=== PATIENT | female | born 1960 | race Caucasian/White ===

== ENCOUNTER 2017-06-18 09:47 | Outpatient (RCR) | payer OTHER, SELFPAY ==
--- NOTE | 2017-06-18 15:40 | MASS.EVAL_ITS ---
Massage Therapy Evaluation: Initial Evaluation Date: 06/18/2017 SUBJECTIVE: Rosa is a 56 year old female who was referred to the [facility] facility for a massotherapy evaluation by Dr. Андрей Cuevas with the diagnosis of chronic low back pain. Rosa presents today with the symptoms of tension and pain in her neck, upper back, shoulders and lower back. She reports having a medical history of fibrmyalgia and low back and neck pain with radiating pain in her neck currently. She reports having minimal limitations during his daily activities currently. OBJECTIVE: Upon observation Rosa has poor posture with her head forward and shoulders forward from the neutral position in sitting and standing. After examination and palpation I found Rosa to have very high muscle tension in her scalenes, trapezius, rhomboids, and sub occipitals with minimal restrictions in cervical ROM. Her thoracic and lumbar paraspinals were tender with muscle knots. Her hips and lumbar region were also tight with tender points. The first treatment consisted of a one hour massage to her upper body with myofascial release, muscle stripping, trigger point compression techniques, and cervical manual traction. ASSESSMENT: I feel that Rosa is a good candidate for massotherapy at this time. She had a favorable response to the first treatment with reduction in her muscle aches, pain and tension. She also had improvement in her cervical and lumbar range of motion with improved flexibility. PLAN: The plan of care was reviewed with the patient. The patient is to be seen on as needed basis for a total of ten sessions with the recommendation of once every four weeks for a one hour treatment.
--- NOTE | 2018-04-22 15:55 | MASS.DISCH ---
Massage Therapy Discharge Summary: Discharge Date: 04/22/2018 Rosa was seen for a massotherapy evaluation on 06/18/2017 with the diagnosis of chronic low back pain. She was treated with one session of massage therapy consisting of deep pressure soft tissue techniques, myofascial release and trigger point compression to her cervical, thoracic, lower back, upper extremities and hips. Rosa responded well to the therapy by reporting decreased tension and pain throughout her neck, shoulders, lower back and hips. Her goals for therapy were not met due to no follow up treatment sessions performed. At this time this patient is being discharged from our care at [facility] facility.
== END 2017-06-18 19:00 | disposition home or self-care (01) ==
LOC: MASS 09:47
PROVIDERS: Family Provider Family Medicine; PCP Family Medicine; Visit Provider Family Medicine
DX: M54.5 Low back pain (principal)
CPT/HCPCS: 97124

== ENCOUNTER → 2017-07-04 15:19 | Outpatient (CLI) | payer OTHER, SELFPAY | PROVIDERS: Family Provider Family Medicine; PCP Family Medicine; Visit Provider Physician Assistant | DX: J02.9 Acute pharyngitis, unspecified (principal) | CPT/HCPCS: 87081 ==

== ENCOUNTER → 2018-10-10 | Outpatient (CLI) | payer OTHER, SELFPAY ==
[2018-08-20 10:30] VITALS: BMI 29.2
--- NOTE | 2018-10-10 09:51 | ECHOD_ITS ---
Reason For Study: VALVE REPL EVAL Procedure This was a 2D Doppler, Color Flow transthoracic echocardiogram. The study was technically difficult. Exam performed in department. Left Ventricle Normal size and thickness. The estimated ejection fraction is 65 %. Stage 1 diastolic dysfunction. No regional wall motion abnormalities noted. Right Ventricle Normal size and thickness. Normal systolic function. Atria Normal left atrium. Normal right atrium. Normal atrial septum. Mitral Valve The mitral valve is structurally normal. No prolapse or stenosis seen. Trivial mitral valve insufficiency. Tricuspid Valve Normal tricuspid valve. Trivial tricuspid valve insufficiency. Right ventricular systolic pressure estimated to be 24 mmHg. Aortic Valve Trisinus/trileaflet aortic valve. Normal aortic valve. Pulmonic Valve Normal pulmonic valve. Great Vessels Normal aortic root. Normal arch. Normal inferior vena cava. Inferior vena cava collapse with sniff. Pericardium/Pleural No pericardial effusion. MMode/2D Measurements & Calculations LVIDd: 4.6 cm IVSd: 0.77 cm Ao root diam: 3.2 cm LVIDs: 2.8 cm LVPWd: 0.93 cm RVDd: 3.6 cm FS: 38.7 % LAV(MOD-bp): 42.3 ml LA A4 area: 15.6 cm2 LA dimension(2D): 3.5 cm LAV(MOD-bp) Indexed: 21.7 ml/m2 LAV(MOD-sp2): 46.2 ml LAV(MOD-sp4): 37.2 ml RA A4 area: 10.5 cm2 Time Measurements MV dec time: 0.23 sec Doppler Measurements & Calculations MV E max tray: 55.6 cm/sec Lat Peak E' Tray: 7.0 cm/sec Med Peak E' Tray: 6.8 cm/sec MV A max tray: 68.4 cm/sec E/E' lat: 7.9 E/E' med: 8.2 MV E/A: 0.81 Ao V2 max: 152.2 cm/sec LV V1 max: 106.1 cm/sec PA V2 max: 74.0 cm/sec Ao max P.3 mmHg LV V1 max P.5 mmHg TR max tray: 222.0 cm/sec TR max P.7 mmHg Interpretation Summary The estimated ejection fraction is 65 %. Stage 1 diastolic dysfunction. Trivial tricuspid valve insufficiency. Right ventricular systolic pressure estimated to be 24 mmHg. Trivial mitral valve insufficiency. There is no comparison study available. Ordering Physician: Gonzalo Valentin Referring Physician: SOL FORTE Performed By: Tracy Joseph RDCS, RVT
== END | disposition home or self-care (01) ==
LOC: CVS 09:50
PROVIDERS: Family Provider Family Medicine; PCP Family Medicine; Referring Provider Internal Medicine Cardiovascular Disease; Visit Provider Internal Medicine Cardiovascular Disease
DX: R00.2 Palpitations (principal); Z86.79 Personal history of other diseases of the circulatory system
CPT/HCPCS: 93306

== ENCOUNTER → 2018-11-01 | Outpatient (CLI) | payer OTHER, SELFPAY ==
[2018-08-20 10:30] VITALS: BMI 29.2
[2018-11-01 12:04] LABS: AST(SGOT) 24 U/L (15-37); Alanine Aminotransfer ALT/SGPT 27 U/L (13-56); Albumin, Serum 3.6 g/dL (3.2-5.0); Alkaline Phosphatase 62 U/L (45-117); Bilirubin, Direct 0.14 mg/dL (0.00-0.30); Cholesterol 201 mg/dL (200); Globulin 4.2 g/dL (2.2-4.2); High Density Lipoprotein 51 mg/dL; Protein, Total 7.8 g/dL (6.4-8.2); Triglycerides 183 mg/dL; Very Low Density Lipoprotein 37 mg/dL (5-40)
[2018-11-01 16:13] LABS: Thyroid Stim Hormone (TSH) 1.76 uIU/mL (0.358-3.74)
== END | disposition home or self-care (01) ==
LOC: LAB 10:48
PROVIDERS: Family Provider Family Medicine; PCP Family Medicine; Referring Provider Internal Medicine Cardiovascular Disease; Visit Provider Internal Medicine Cardiovascular Disease
DX: K50.90 Crohn's disease, unspecified, without complications (principal); R00.2 Palpitations; Z86.79 Personal history of other diseases of the circulatory system; E03.9 Hypothyroidism, unspecified
CPT/HCPCS: 36415; 80061; 80076; 84443

== ENCOUNTER 2021-06-24 08:20 | Outpatient (CLI) | payer OTHER, SELFPAY ==
--- NOTE | 2021-06-24 08:24 | BI_ITS ---
MAMMOGRAPHY - BILATERAL SCREENING REASON FOR EXAM: Female, 60 years old. Routine annual screening examination. PERTINENT HISTORY: Grandmother with breast cancer. TECHNIQUE: Digital bilateral breast yifan (3D mammographic acquisition) in the CC and MLO projections. 2-D mediolateral oblique (MLO) and craniocaudad (CC) views of both breasts were obtained. CAD: Full Field Digital Mammography with Computer Added Detection was performed. COMPARISON: Comparison is made with prior study dated 09/27/2011. FINDINGS: Breast Composition: There are scattered areas of fibroglandular density. There are no dominant masses or suspicious calcifications. Stable small benign-appearing bilateral axillary lymph nodes. No other significant abnormalities are identified. There has been no significant change since the prior study. BI/SCRN MAMM (CAD)W/YIFAN BILAT IMPRESSION: Stable bilateral screening mammogram. Yearly follow-up mammogram recommended. (A) ASSESSMENT CATEGORY: BIRADS Category 2: Benign. A letter regarding these results will be sent to the patient by the facility within 30 days. Approximately 10% of breast cancers are not detected by mammography. A normal mammogram should not delay biopsy of a clinically suspicious abnormality. [id number] Electronically Signed: Jamie Christy MD at 9:57 EST ,
== END 2021-06-24 23:59 | disposition home or self-care (01) ==
LOC: OPBI 08:21
PROVIDERS: PCP Family Medicine; Referring Provider Obstetrics & Gynecology; Visit Provider Obstetrics & Gynecology
DX: Z12.31 Encounter for screening mammogram for malignant neoplasm of breast (principal)
CPT/HCPCS: 77063; 77067

== ENCOUNTER → 2021-09-27 | Outpatient (CLI) | payer OTHER, SELFPAY ==
[2021-09-27 16:02] LABS: Absolute Lymphocyte Count 1.43 X10^3/uL (0.83-4.51); Absolute Neutrophil Count 3.7 X10^3/uL (2.0-7.7); Basophil# 0.05 X10^3/uL; Basophil% 0.9 % (0-1); Eosinophil# 0.11 X10^3/uL; Eosinophils% 1.9 % (0-5); Hematocrit 28.4 % (37-47); Lymphocyte # 1.43 X10^3/ul (0.83-4.51); Lymphocyte % 24.7 % (19-41); Mean Corp Hgb Conc 28.2 g/dL (32-36); Mean Corpuscular Hgb 21.3 pg (27.0-32.0); Mean Corpuscular Volume 75.7 fL (81-99); Mean Platelet Vol. 9.6 fl (6.2-12.0); Monocyte# 0.43 X10^3/uL; Monocyte% 7.4 % (0-10); NRBC Flagged by Analyzer 0.3 % (0-5); Neutrophil # 3.74 X10^3/uL (2.7-7.7); Neutrophil % 64.8 % (47-70); Platelet Count 331 K/mm3 (150-450); RBC Distribution Width CV 16.7 % (11.6-14.6); RBC Distribution Width SD 45.4 fl (35.1-43.9); Red Blood Count 3.75 M/mm3 (4.2-5.4); White Blood Count 5.8 K/mm3 (4.4-11.0)
== END | disposition home or self-care (01) ==
LOC: LAB 15:29
PROVIDERS: PCP Family Medicine; Referring Provider Family Medicine; Visit Provider Family Medicine
DX: R53.83 Other fatigue (principal)
CPT/HCPCS: 36415; 85025

== ENCOUNTER → 2021-11-17 | Outpatient (CLI) | payer OTHER, SELFPAY ==
[2021-11-17 12:50] LABS: Erythrocyte Sedimentation Rate 26 mm/hr (0-30)
[2021-11-17 12:55] LABS: Absolute Lymphocyte Count 0.72 X10^3/uL (0.83-4.51); Absolute Neutrophil Count 2.8 X10^3/uL (2.0-7.7); Basophil# 0.04 X10^3/uL; Eosinophil# 0.09 X10^3/uL; Eosinophils% 2.3 % (0-5); Hemoglobin 10.4 g/dL (12.0-15.0); Lymphocyte # 0.72 X10^3/ul (0.83-4.51); Mean Corp Hgb Conc 30.6 g/dL (32-36); Mean Corpuscular Hgb 24.9 pg (27.0-32.0); Mean Corpuscular Volume 81.5 fL (81-99); Mean Platelet Vol. 9.8 fl (6.2-12.0); Monocyte# 0.32 X10^3/uL; NRBC Flagged by Analyzer 0 % (0-5); Neutrophil # 2.81 X10^3/uL (2.7-7.7); Neutrophil % 70.4 % (47-70); POSITIVE MORPHOLOGY YES; Platelet Count 305 K/mm3 (150-450); RBC Distribution Width CV 22.2 % (11.6-14.6); RBC Distribution Width SD 66.1 fl (35.1-43.9); RET-HE 28.3 pg (30-35); Red Blood Count 4.17 M/mm3 (4.2-5.4); Reticulocyte Count 2.97 % (0.5-1.5)
[2021-11-17 13:08] LABS: Differential Indicated SCAN CRITERIA MET
[2021-11-17 13:15] LABS: CRP < 2.90 mg/L (0.0-3.0); Ferritin 18 ng/mL (8-252); Iron 276 ug/dL (50-170); Iron Binding Capacity,Total 398 ug/dL (250-450); LDH 213 U/L (84-246); PERCENT IRON SATURATION 69.3 % (15.0-55.0)
[2021-11-17 13:31] LABS: Anisocytosis 3+; Differential Comment SCANNED
== END | disposition home or self-care (01) ==
LOC: LABSPEC 11:54 → LAB 12:06
PROVIDERS: PCP Family Medicine; Visit Provider Internal Medicine Gastroenterology
DX: D64.9 Anemia, unspecified (principal)
CPT/HCPCS: 36415; 82728; 83540; 83550; 83615; 85025; 85045; 85652; 86140

== ENCOUNTER → 2022-02-16 | Outpatient (CLI) | payer OTHER, SELFPAY ==
[2022-02-16 08:52] LABS: Absolute Lymphocyte Count 1.21 X10^3/uL (0.83-4.51); Absolute Neutrophil Count 3.7 X10^3/uL (2.0-7.7); Basophil# 0.05 X10^3/uL; Basophil% 0.9 % (0-1); Eosinophil# 0.17 X10^3/uL; Eosinophils% 3.1 % (0-5); Hematocrit 39.5 % (37-47); Hemoglobin 12.5 g/dL (12.0-15.0); Lymphocyte # 1.21 X10^3/ul (0.83-4.51); Lymphocyte % 22.1 % (19-41); Mean Corp Hgb Conc 31.6 g/dL (32-36); Mean Corpuscular Hgb 29.3 pg (27.0-32.0); Mean Corpuscular Volume 92.5 fL (81-99); Mean Platelet Vol. 10.1 fl (6.2-12.0); Monocyte# 0.32 X10^3/uL; Monocyte% 5.9 % (0-10); NRBC Flagged by Analyzer 0 % (0-5); Neutrophil # 3.71 X10^3/uL (2.7-7.7); Neutrophil % 67.8 % (47-70); Platelet Count 264 K/mm3 (150-450); RBC Distribution Width SD 50.2 fl (35.1-43.9); Red Blood Count 4.27 M/mm3 (4.2-5.4); White Blood Count 5.5 K/mm3 (4.4-11.0)
[2022-02-16 10:11] LABS: Ferritin 24 ng/mL (8-252); Iron 38 ug/dL (50-170); Iron Binding Capacity,Total 340 ug/dL (250-450)
== END | disposition home or self-care (01) ==
LOC: LAB 08:18
PROVIDERS: PCP Family Medicine; Referring Provider Family Medicine; Visit Provider Family Medicine
DX: D64.9 Anemia, unspecified (principal)
CPT/HCPCS: 36415; 82728; 82746; 83540; 83550; 85025

== ENCOUNTER → 2022-10-06 | Outpatient (CLI) | payer OTHER, SELFPAY ==
[2022-10-06 15:47] LABS: Absolute Lymphocyte Count 0.85 X10^3/uL (0.83-4.51); Absolute Neutrophil Count 3.2 X10^3/uL (2.0-7.7); Basophil# 0.05 X10^3/uL; Basophil% 1.1 % (0-1); Eosinophil# 0.11 X10^3/uL; Eosinophils% 2.4 % (0-5); Hematocrit 27.1 % (37-47); Hemoglobin 7.7 g/dL (12.0-15.0); Lymphocyte # 0.85 X10^3/ul (0.83-4.51); Lymphocyte % 18.7 % (19-41); Mean Corp Hgb Conc 28.4 g/dL (32-36); Mean Corpuscular Hgb 21.8 pg (27.0-32.0); Mean Corpuscular Volume 76.6 fL (81-99); Mean Platelet Vol. 9.4 fl (6.2-12.0); Monocyte% 6.6 % (0-10); NRBC Flagged by Analyzer 0 % (0-5); Neutrophil # 3.22 X10^3/uL (2.7-7.7); Neutrophil % 70.8 % (47-70); POSITIVE MORPHOLOGY YES; Platelet Count 296 K/mm3 (150-450); RBC Distribution Width CV 20.8 % (11.6-14.6); RBC Distribution Width SD 57.4 fl (35.1-43.9); Red Blood Count 3.54 M/mm3 (4.2-5.4); White Blood Count 4.6 K/mm3 (4.4-11.0)
[2022-10-06 16:00] LABS: Differential Indicated SCAN CRITERIA MET
[2022-10-06 16:31] LABS: Thyroid Stim Hormone (TSH) 3.02 uIU/mL (0.358-3.74)
[2022-10-06 16:42] LABS: Anisocytosis 2+; Differential Comment SCANNED
[2022-10-06 16:43] LABS: Hypochromasia 3+; Microcytosis 1+; Polychromasia 1+
[2022-10-06 16:44] LABS: Ovalocyte RARE; Schistocytes RARE; Target Cells RARE
== END | disposition home or self-care (01) ==
PROVIDERS: PCP Family Medicine; Referring Provider Family Medicine; Visit Provider Family Medicine
DX: E03.9 Hypothyroidism, unspecified (principal); D64.9 Anemia, unspecified
CPT/HCPCS: 36415; 84443; 85025

== ENCOUNTER 2022-10-11 17:58 | Emergency (ER) | payer OTHER, SELFPAY ==
[2022-10-11 17:59] VITALS: TEMP 36.4; BMI 32.4
[2022-10-11 18:05] VITALS: BP 172/116; PULSE 89; RESP 14; O2SAT 99
--- NOTE | 2022-10-11 18:25 | EKG12_ITS ---
Test Reason : CP Blood Pressure : / mmHG Vent. Rate : 077 BPM Atrial Rate : 077 BPM P-R Int : 158 ms QRS Dur : 086 ms QT Int : 366 ms P-R-T Axes : 058 014 017 degrees QTc Int : 414 ms Normal sinus rhythm Nonspecific ST abnormality Abnormal ECG Confirmed by ALLY CASTELLANOS, ZAFAR ([id number]), fan mail editor COOPER KLEIN ([id number]) on 10/13/2022 8:09:56 AM Referred By: ROBERT Confirmed By:ZAFAR CANALES MD
[2022-10-11] MEDS: Aspirin 81 MG TAB.CHEW 324 MG PO (18:33)
--- NOTE | 2022-10-11 18:38 | RAD_ITS ---
INDICATION: chest pain EXAMINATION/TECHNIQUE: X-RAY - XR Chest 1 View COMPARISON: FINDINGS: LINES/DEVICES: None. LUNGS: No consolidation, edema or effusion. No pneumothorax. MEDIASTINUM AND CARDIOVASCULAR STRUCTURES: Cardiac silhouette not enlarged. Central airways and mediastinal contour are unremarkable. BONES AND SOFT TISSUES: Degenerative vertebral changes. RAD/Chest 1 View (Portable) IMPRESSION: No radiographic evidence of acute cardiopulmonary disease. Electronically Signed: Oscar Carlisle DO at 18:50 EDT ,
[2022-10-11 19:00] LABS: Absolute Lymphocyte Count 1.09 X10^3/uL (0.83-4.51); Absolute Neutrophil Count 4.6 X10^3/uL (2.0-7.7); Basophil# 0.05 X10^3/uL; Basophil% 0.8 % (0-1); Eosinophils% 1.6 % (0-5); Hematocrit 33.8 % (37-47); Hemoglobin 9.3 g/dL (12.0-15.0); Lymphocyte # 1.09 X10^3/ul (0.83-4.51); Lymphocyte % 17.4 % (19-41); Mean Corp Hgb Conc 27.5 g/dL (32-36); Mean Corpuscular Hgb 21.5 pg (27.0-32.0); Mean Corpuscular Volume 78.2 fL (81-99); Mean Platelet Vol. 9.4 fl (6.2-12.0); Monocyte% 6.4 % (0-10); NRBC Flagged by Analyzer 0 % (0-5); Neutrophil % 73.5 % (47-70); POSITIVE MORPHOLOGY YES; Platelet Count 333 K/mm3 (150-450); RBC Distribution Width CV 22.5 % (11.6-14.6); RBC Distribution Width SD 59.3 fl (35.1-43.9); Red Blood Count 4.32 M/mm3 (4.2-5.4); White Blood Count 6.3 K/mm3 (4.4-11.0)
[2022-10-11 19:02] LABS: Differential Indicated SCAN CRITERIA MET
[2022-10-11 19:17] LABS: Anion Gap 5 (5-15); BUN 13 mg/dL (7-18); BUN/Creat Ratio 15.1 RATIO (10-20); Calcium,Total 9.2 mg/dL (8.5-10.1); Chloride 107 mmol/L (98-107); Creatinine, Serum 0.86 mg/dL (0.55-1.02); EST Glomerular Filtration Rate 71 mL/min (>60); Est Glom Filt Rate - Afr Amer 85 mL/min (>60); Estimated Creatinine Clearance 59.47 ml/min; Glucose 105 mg/dL (74-106); Potassium 3.8 mmol/L (3.5-5.1); Sodium Level 140 mmol/L (136-145); Troponin-I HS 9 pg/mL (3.0-54.0)
[2022-10-11 19:23] LABS: Anisocytosis 2+; Differential Comment SCANNED; Hypochromasia 1+; Macrocytosis 1+; Microcytosis 1+
--- NOTE | 2022-10-11 19:35 | CT_ITS ---
STUDY: CTA CHEST REASON FOR EXAM: Female, 62 years old. Elevated D-dimer RADIATION DOSAGE (If Supplied By Facility): CTDIvol = ( 14.71 ) mGy, DLP = ( 493.36 ) mGycm TECHNIQUE: The examination was performed with the intravenous administration of IV 100mL Isovue-370. Post-processing of the angiographic images was performed, with multiplanar reformation and 3D reconstruction. Individualized dose optimization techniques were used for this CT. COMPARISON: FINDINGS: Normal enhancement of the main pulmonary artery and right and left pulmonary arteries. Normal enhancement of the bilateral peripheral pulmonary arteries. There is no demonstrated pulmonary embolism. Normal thoracic aorta and visualized great vessels. There is no demonstrated aortic dissection. Normal heart and pericardium. Normal mediastinum. Normal hilar regions. Normal visualized trachea and bronchi. The lungs are well expanded. Normal pulmonary parenchyma. Normal pleura. Normal chest wall structures. Normal osseous structures. Normal visualized upper abdomen. CT/CTA Chest W/WO Contrast IMPRESSION: No demonstrated pulmonary embolism or arterial dissection. Electronically Signed: Oscar Carlisle DO at 20:38 EDT ,
[2022-10-11 21:00] VITALS: BP 133/72; PULSE 87; RESP 24; O2SAT 98
[2022-10-11 21:54] VITALS: BP 120/80; PULSE 76; RESP 11; O2SAT 98
--- NOTE | 2022-10-12 00:18 | EDS_ITS ---
HPI History of Present Illness Chief Complaint: Chest Pain Informant: patient Onset/Context/Timing Onset: Days (2) Activity at onset: gradual Timing: Intermittent Quality: Positive for Dull and Heaviness Location: Right Chest Worsened By: Nothing Relieved By: Nothing Associated Symptoms: Positive for Palpitations; Negative for Nausea, Vomiting, Diaphoresis, Dyspnea, Cough, Fever, Lightheadedness or Acid Reflux Narrative Narrative: Patient presents with chest pain that has been intermittent for the past 2 days. Patient describes it as dull and heavy. Patient states the pain is over the right side of her chest and radiates up into her neck. Patient states nothing makes it better nothing makes it worse. Patient admits to some palpitations where she feels like her heart skips a beat. Patient denies any nausea or vomiting. Patient denies any diaphoresis. Patient denies any shortness of breath or cough. Patient denies any cardiac or PE risk factors. CVD Risk Factors: Negative for Hypertension, Diabetes, Hypercholesterolemia, Family History 1' </=55 or Smoking PE Risk Factors: Negative for Recent Travel/Surgery, Recent Immobilization, Prior DVT or PE, Cancer or OCP + Smoking + >/=35 [facility] Medical History Crohn's disease History of mitral valve prolapse Hypothyroidism Mitral valve prolapse Palpitations Home Medications atenolol 25 mg tablet 25 mg PO DAILY 06/15/15 [History Last Taken Unknown] levothyroxine 125 mcg capsule 125 mcg PO DAILY 08/20/18 [History Last Taken Unknown] ipratropium bromide 42 mcg (0.06 %) nasal spray 2 spray intranasal TID 10/04/21 [History Last Taken Unknown] calcium carbonate 333 mg-magnesium oxide 133 mg-zinc gluc 5 mg tablet tab PO 05/22/22 [History Last Taken Unknown] cholecalciferol (vitamin D3) 25 mcg (1,000 unit) capsule 25 mcg PO DAILY 05/22/22 [History Last Taken Unknown] omega-3 fatty acids-fish oil 300 mg-500 mg capsule (Fish Oil) cap PO 05/22/22 [History Last Taken Unknown] tumeric 100 mg-virgie 150 mg-olive 50 mg-oreg 150 mg-caprylate capsule 1 cap PO DAILY 05/22/22 [History Last Taken Unknown] Allergy/AdvReac Type Severity Reaction Status Date / Time sulfasalazine AdvReac Hives Verified 10/11/22 17:58 [From Azulfidine] Family History Mother Hypertension Father Diabetes Surgical History Crohns surgery History of cholecystectomy S/P small bowel resection Social History Smoking Status: Never smoker alcohol intake: never ROS ROS ED Constitutional Constitutional ED: Denies chills or fever(s) Eyes Eyes: Denies blurry vision or change in vision ENT ENT ED: Denies rhinorrhea or sore throat Cardiovascular Cardiovascular: Reports chest pain and palpitations Respiratory/Chest Respiratory/Chest: Denies cough or dyspnea Gastrointestinal Gastrointestinal: Denies abdominal pain, nausea or vomiting Genitourinary Genitourinary ED: Denies dysuria or hematuria Musculoskeletal Musculoskeletal: Denies back pain or neck pain Integumentary Denies abscess or rash Neurologic Neurologic: Denies headache(s) or weakness Psychiatric Psychiatric: Reports anxiety Allergic/Immunologic Allergic/Immunologic ED: Denies mouth swelling or urticaria EXAM Physical Exam Const Vital Signs: 10/11/22 17:59 10/11/22 18:03 10/11/22 18:05 Temperature 97.6 F L Temperature Source Temporal Pulse Rate 89 Respiratory Rate 14 Respiratory Effort Normal Blood Pressure 172/116 H Blood Pressure Mean 134 Pulse Ox 99 Oxygen Delivery Method Room Air 10/11/22 18:31 10/11/22 21:00 10/11/22 21:54 Temperature Temperature Source Pulse Rate 87 76 Respiratory Rate 24 H 11 L Respiratory Effort Blood Pressure 133/72 H 120/80 Blood Pressure Mean 92 Pulse Ox 98 98 Oxygen Delivery Method Room Air Positive well nourished, well developed and obese General Appearance ED: well developed and NAD Nutritional Appearance: obese HEENT normocephalic and atraumatic Eyes PERRL and EOMs intact bilaterally Neck supple and no JVD Chest Wall palpation of chest normal Resp normal respiratory effort and clear to auscultation bilaterally Effort and Inspection: Negative for respiratory distress Cardio regular rate, regular rhythm and no murmurs GI normal to inspection, nondistended, normoactive bowel sounds, soft to palpation, non-tender and non-distended Extremity normal to inspection General Extremety ED: Negative for edema or tenderness General Extremity: Negative for edema Neuro oriented x3, CN's II-XII intact bilaterally and no sensory deficits noted Sensorium / Orientation: awake and alert Motor Exam: strength 5/5 throughout Psych mental status grossly normal Heart Score History: Slightly/Non-Suspicious ECG: Nonspecific Repolarization Age: >45 - <65 years Risk Factors: No Risk Factors Troponin: </= Normal Limit Score: 2 MDM MDM MDM Narrative Medical decision making narrative: Differential diagnosis includes cardiac dysrhythmia, cardiac ischemia, pulmonary embolism, pneumonia, pneumothorax, musculoskeletal pain, and anxiety. EKG will be obtained to assess for cardiac dysrhythmia and cardiac ischemia. Basic metabolic profile will be obtained to assess for electrolyte abnormality and renal function. CBC will be obtained to assess for anemia and leukocytosis. D- dimer will be obtained to assess for pulmonary embolism. High-sensitivity troponin will be obtained to assess for cardiac ischemia. Lab Data Attestation: I reviewed the patient's lab results. Lab results narrative: CBC was reviewed. There is a mild anemia with a hemoglobin of 9.3 and hematocrit 33.8. The remainder is within normal limits. Basic metabolic profile was reviewed and was within normal limits. D-dimer was reviewed and was elevated at 0.70. High-sensitivity troponin was reviewed and was normal at 9. Labs: Laboratory Results - last 24 hr 10/11/22 10/11/22 10/11/22 18:16 18:16 18:16 WBC 6.3 RBC 4.32 Hgb 9.3 L Hct 33.8 L MCV 78.2 L MCH 21.5 L MCHC 27.5 L RDW Std Deviation 59.3 H RDW Coeff of Leighann 22.5 H Plt Count 333 MPV 9.4 Immature Gran % (Auto) 0.300 Neut % (Auto) 73.5 H Lymph % (Auto) 17.4 L Turner % (Auto) 6.4 Eos % (Auto) 1.6 Baso % (Auto) 0.8 Absolute Neuts (auto) 4.6 Absolute Lymphs (auto) 1.09 Nucleated RBC % 0 Differential Comment SCANNED Hypochromasia 1+ Anisocytosis 2+ Microcytosis 1+ Macrocytosis 1+ D-Dimer Quant (PE/DVT) 0.70 H* Sodium 140 Potassium 3.8 Chloride 107 Carbon Dioxide 28.0 Anion Gap 5 BUN 13 Creatinine 0.86 Estim Creat Clear Calc 59.47 Est GFR (MDRD) Af Amer 85 Est GFR (MDRD) Non-Af 71 BUN/Creatinine Ratio 15.1 Glucose 105 Calcium 9.2 Troponin I High Sens 9 Radiography Diagnostic Testing: Clinical Impression(s) from Imaging Studies Chest X-Ray 10/11/22 18:38 IMPRESSION: No radiographic evidence of acute cardiopulmonary disease. Electronically Signed: Oscar Carlisle DO at 18:50 EDT , Chest CTA 10/11/22 19:35 IMPRESSION: No demonstrated pulmonary embolism or arterial dissection. Electronically Signed: Oscar Carlisle DO at 20:38 EDT , Portable 1 view chest x-ray was obtained. On my independent interpretation, lung oh are clear. There is normal cardiac silhouette. Bony thorax is normal. There is no acute process noted. Radiologist also interpreted the x- ray and agrees. Because of the elevated D-dimer, CTA of the chest was obtained. There is no evidence of pulmonary embolism or aortic dissection. This was interpreted by the radiologist and was also independently reviewed by myself. EKG Initial EKG: Attestation: I personally reviewed and interpreted this EKG as follows: Interpretation: Sinus Rhythm and No Acute Injury Pattern Comments: EKG was obtained. On my independent interpretation, it showed a normal sinus rhythm. CA interval, QRS interval, and QTc intervals were all normal. Liberty was normal. There are no acute ST or T wave changes. Prior EKG tracings: available for review Prior: Unchanged (08/20/2018) Treatment and Re-Evaluation :: Patient was advised of her findings. Patient was feeling better on reevaluation. Patient has a HEART score of 2. Patient was advised that this is low risk for acute cardiac event. Patient was instructed to follow-up with her primary care physician in 5 to 7 days for further evaluation. Patient understood and was agreeable with the plan. All questions were answered. Discharge Plan Triage Chief Complaint: Chest Pain ED Provider: Jeffrey Patterson Dx/Rx/DC Orders Clinical Impression: Chest pain, History of mitral valve prolapse Instructions: ED Chest Pain, Uncertain Cause Prescriptions: No Action levothyroxine 125 mcg capsule 125 mcg capsule 125 mcg PO DAILY ipratropium bromide 42 mcg (0.06 %) spray,non-aerosol 2 spray intranasal TID Rx Instructions: administer into each nostril [id number]-jyuvl-oreg-capryl 100 mg-150 mg- 50 mg-150 mg capsule 1 cap PO DAILY Fish Oil 300-500 mg capsule PO calcium carb-mag ox-zinc gluc 333-133-5 mg tablet PO cholecalciferol (vitamin D3) 25 mcg (1,000 unit) capsule 25 mcg PO DAILY atenolol 25 MG tablet 25 mg PO DAILY Primary Care Provider: Angela Fuentes Referrals: Angela Fuentes MD [Primary Care Provider] - 5-7 Days Disposition Disposition: Home, Self Care Discharge Date/Time: 10/11/22 21:58
== END 2022-10-11 21:58 | disposition home or self-care (01) ==
PROVIDERS: Emergency Provider Emergency Medicine; PCP Family Medicine; Visit Provider Emergency Medicine
DX: R07.9 Chest pain, unspecified (principal); I34.1 Nonrheumatic mitral (valve) prolapse; E03.9 Hypothyroidism, unspecified; Z79.899 Other long term (current) drug therapy; Z90.49 Acquired absence of other specified parts of digestive tract
CPT/HCPCS: 71045; 71275; 80048; 84484; 85025; 85379; 93005; 99284; Q9967

== ENCOUNTER → 2022-10-17 | Outpatient (CLI) | payer OTHER, SELFPAY ==
[2022-10-17 17:56] LABS: Ferritin 22 ng/mL (8-252)
[2022-10-19 16:09] LABS: Endomysial Antibody IgA Negative (Negative); Immunoglobulin A 480 mg/dL (87-352); t-Transglutaminase IgA <2 U/mL (0-3)
== END | disposition home or self-care (01) ==
LOC: MTLAB 16:27
PROVIDERS: PCP Family Medicine; Referring Provider Internal Medicine Gastroenterology; Visit Provider Internal Medicine Gastroenterology
DX: D50.9 Iron deficiency anemia, unspecified (principal)
CPT/HCPCS: 36415; 82728; 82784; 83516; 86255

== ENCOUNTER → 2023-02-16 | Outpatient (CLI) | payer OTHER, SELFPAY ==
[2023-02-16 11:01] LABS: Absolute Lymphocyte Count 1.01 X10^3/uL (0.83-4.51); Absolute Neutrophil Count 4.4 X10^3/uL (2.0-7.7); Basophil# 0.04 X10^3/uL; Basophil% 0.7 % (0-1); Eosinophil# 0.16 X10^3/uL; Eosinophils% 2.7 % (0-5); Hematocrit 39.5 % (37-47); Hemoglobin 12.5 g/dL (12.0-15.0); Lymphocyte # 1.01 X10^3/ul (0.83-4.51); Lymphocyte % 16.9 % (19-41); Mean Corp Hgb Conc 31.6 g/dL (32-36); Mean Corpuscular Hgb 29.6 pg (27.0-32.0); Mean Corpuscular Volume 93.6 fL (81-99); Mean Platelet Vol. 10.3 fl (6.2-12.0); Monocyte# 0.31 X10^3/uL; Monocyte% 5.2 % (0-10); NRBC Flagged by Analyzer 0 % (0-5); Neutrophil # 4.44 X10^3/uL (2.7-7.7); Neutrophil % 74.2 % (47-70); Platelet Count 261 K/mm3 (150-450); RBC Distribution Width CV 13.9 % (11.6-14.6); RBC Distribution Width SD 46.8 fl (35.1-43.9); Red Blood Count 4.22 M/mm3 (4.2-5.4)
[2023-02-16 11:33] LABS: Ferritin 19 ng/mL (8-252)
== END | disposition home or self-care (01) ==
PROVIDERS: PCP Family Medicine; Referring Provider Family Medicine; Visit Provider Family Medicine
DX: D50.9 Iron deficiency anemia, unspecified (principal)
CPT/HCPCS: 36415; 82728; 85025

== ENCOUNTER → 2023-03-07 | Outpatient (CLI) | payer OTHER, SELFPAY ==
[2023-03-07 12:53] LABS: Erythrocyte Sedimentation Rate 9 mm/hr (0-30)
[2023-03-07 13:28] LABS: ALB/GLOB Ratio 0.9 RATIO (0.9-2.4); AST(SGOT) 30 U/L (15-37); Alanine Aminotransfer ALT/SGPT 39 U/L (13-56); Albumin, Serum 3.8 g/dL (3.2-5.0); Alkaline Phosphatase 63 U/L (45-117); Anion Gap 3 (5-15); BUN 14 mg/dL (7-18); BUN/Creat Ratio 16.7 RATIO (10-20); CRP 7.02 mg/L (0.0-3.0); Calcium,Total 9.1 mg/dL (8.5-10.1); Chloride 106 mmol/L (98-107); Creatinine, Serum 0.84 mg/dL (0.55-1.02); EST Glomerular Filtration Rate 73 mL/min (>60); Est Glom Filt Rate - Afr Amer 88 mL/min (>60); Ferritin 18 ng/mL (8-252); Globulin 4.1 g/dL (2.2-4.2); Glucose 96 mg/dL (74-106); Iron 49 ug/dL (50-170); Potassium 4.6 mmol/L (3.5-5.1); Protein, Total 7.9 g/dL (6.4-8.2); Sodium Level 140 mmol/L (136-145)
[2023-03-07 13:44] LABS: Hepatitis B Surface Antigen Non-Reactive (Nonreactive)
[2023-03-09 19:07] LABS: QNTFERON TB Mitogen Value 3.31 IU/mL (.); QNTFERON TB Nil Value 0 IU/mL (.); QNTFERON TB1+ Ag Value 0 IU/mL (.); QNTFERON TB2+ Ag Value 0 IU/mL (.); QNTIFERON TB Positive Criteria Negative (Negative)
== END | disposition home or self-care (01) ==
PROVIDERS: PCP Family Medicine; Referring Provider Internal Medicine Gastroenterology; Visit Provider Internal Medicine Gastroenterology
DX: K50.90 Crohn's disease, unspecified, without complications (principal); D50.9 Iron deficiency anemia, unspecified
CPT/HCPCS: 36415; 80053; 82728; 83540; 85652; 86140; 86480; 87340

== ENCOUNTER → 2023-05-09 | Outpatient (CLI) | payer OTHER, SELFPAY ==
--- OUTSIDE RECORDS SUMMARY | 2023-05-09 11:35 | XMS RPT_ITS | CCD ---
Author Name Unknown Address Formerly [facility], [facility] [address] [place] [address] Organization [facility] Care Team Providers Care Pickle Water Pump Operator Name Role Phone Brian CASTELLANOS, Brian Verduzco Primary Care Provider [phone] Allergies Allergy Classification Reported Allergen(s) Allergy Type Date of Onset Reaction(s) Facility (2 sources) Sulfonamides (Antibiotic) Drug Allergy 04-18-[address] [facility] Medications Current Medications Medication Drug Class(es) Dates Sig (Normalized) Sig (Original) atenolol 25 mg oral tablet (3 sources) beta-Adrenergic Ashley Start: 07-01-2021 End: 09-30-2022 take 1 tablet by mouth once daily atenolol (TENORMIN) 25 mg tablet Take 1 tablet by mouth once daily. 90 tablet 1 09/30/2021 09/30/2022 Active Completed/Discontinued Medications Medication Drug Class(es) Dates Sig (Normalized) Sig (Original) hydrocortisone 25 mg/ml topical cream (2 sources) Corticosteroid Start: 12-22-2020 hydrocortisone (ANUSOL-HC) 2.5 % rectal cream Indications: External hemorrhoid by RECTAL route twice daily. 28 g 1 12/22/2020 Active Problems Problem Classification Problem Date Documented Da te Episodic/Chronic Heart valve disorders (2 sources) Mitral valve prolapse; Translations: [Nonrheumatic mitral (valve) prolapse] Onset: 10-02-2019 10-02-2019 Chronic Other screening for suspected conditions (not mental disorders or infectious disease) (1 source) Patient encounter status; Translations: [Encounter for screening mammogram for malignant neoplasm of breast] Episodic Regional enteritis and ulcerative colitis (2 sources) Crohn's disease; Translations: [Crohn's disease, unspecified, without complications] Onset: 11-12-2007 10-02-2019 Chronic Thyroid disorders (3 sources) Acquired hypothyroidism; Translations: [Hypothyroidism, unspecified] Onset: 10-02-2019 Chronic Encounters Encounter Date Encounter Type Care Provider Facility Start: 08-02-2022 ambulatory Brian Singh MD Work Phone: [facility] [place] Start: 09-29-2021 Refill Brian Singh MD Work Phone: [facility] [place] Procedures Date Procedure Procedure Detail Performing Clinician Start: 06-24-2021 Mammography Brian Velez MD Work Phone: Start: 06-17-2015 Colonoscopy Biran Velez MD Work Phone: Plan of Treatment Date Care Activity Detail Author Start: 04-07-2026 LIPID SCREEN LIPID SCREEN [facility] Start: 11-25-2025 HPV TESTING HPV TESTING [facility] Start: 11-25-2025 PAP TESTING PAP TESTING [facility] Start: 06-17-2025 Colonoscopy COLONOSCOPY [facility] Start: 06-17-2025 COLORECTAL CANCER SCREENING COLORECTAL CANCER SCREENING [facility] Start: 04-07-2024 DIABETES SCREEN DIABETES SCREEN [facility] Start: 06-24-2022 Mammography MAMMOGRAM [facility] Start: 05-07-2022 DEPRESSION ASSESSMENT DEPRESSION ASSESSMENT [facility] Start: 01-05-2022 Influenza vaccination [facility] Start: 12-22-2021 ANNUAL PCP TEAM CHRONIC DISEASE VISIT ANNUAL PCP TEAM CHRONIC DISEASE VISIT [facility] Start: 2018 HEPATITIS B (1 of 3 - Risk 3-dose series) HEPATITIS B (1 of 3 - Risk 3-dose series) [facility] Start: 2008 SHINGRIX VACCINE (1 of 2) SHINGRIX VACCINE (1 of 2) [facility] Start: 08-08-2003 COLOGUARD (FIT-DNA) COLOGUARD (FIT-DNA) [facility] Start: 08-08-[address] COLONOGRAPHY [facility] Start: 08-08-2003 FECAL OCCULT BLOOD FECAL OCCULT BLOOD [facility] Start: 08-08-2003 SIGMOIDOSCOPY SIGMOIDOSCOPY [facility] Start: 1977 HEPATITIS B (1 of 3 - Risk 3-dose series) HEPATITIS B (1 of 3 - Risk 3-dose series) [facility] Start: 1977 Urine microalbumin profile DTAP,TDAP,TD (1 - Tdap) [facility] Start: 1976 HEPATITIS C SCREENING HEPATITIS C SCREENING [facility] Start: 1976 HIV SCREENING HIV SCREENING [facility] Start: 1976 MMR (1 of 2 - Risk 2-dose series) MMR (1 of 2 - Risk 2-dose series) [facility] Start: 1970 Adult depression screening assessment DEPRESSION SCREENING [facility] Start: 1968 MENINGOCOCCAL B: Consider based on risk (1 of 4 - Increased Risk Bexsero 2-dose series) MENINGOCOCCAL B: Consider based on risk (1 of 4 - Increased Risk Bexsero 2-dose series) [facility] Start: 08-08-1963 COVID-19 VACCINE (#1) COVID-19 VACCINE (#1) [facility] Start: 08-08-1959 HEPATITIS A (1 of 2 - Risk 2-dose series) HEPATITIS A (1 of 2 - Risk 2-dose series) [facility] Start: 02-06-1959 COVID-19 VACCINE (#1) COVID-19 VACCINE (#1) [facility] End: 09-01-2023 PERFECTO SCREENING PERFECTO SCREENING Radiology Routine Encounter for screening mammogram for breast cancer 1 Occurrences starting 08/02/2022 until 09/01/2023 [facility] Work Phone: Payers Date Payer Category Payer Unknown MMO [employer] [id number] 2021-Present [phone] [address] [place] [address] Indemnity [id number] 2021 Unknown MMO [employer] [id number] 2021-Present [phone] [address] [place] [address] Indemnity [id number] Social History Date Type Detail Facility Start: 04-18-2019 Tobacco smoking stat us [facility] Never smoked tobacco [facility] Start: 04-18-2019 Tobacco use and exposure Smoke less tobacco non-user [facility] Start: 12-22-2020 Alcohol intake Ex-drinker (finding) [facility] Start: 1960 Sex Assigned At Not on file [facility] Clinical Note 08-02-2022 Note Date & Type Note Facility 08-02-2022 Note Patient Outreach (IN [facility]) JAIR GRAHAM ([id number]) 1960 F Date Time Provider Department 08/02/22 BRIAN SINGH During your visit today, we recorded the following information about you: Allergies As of Date: 08/02/2022 Noted Allergy Reaction SULFA (SULFONAMIDE ANTIBIOTICS) 04/18/2019 4 - Hives Date Reviewed: 12/22/2020 Reviewed by: Radha Melendez Ma - Fully Assessed Visit Diagnosis:Encounter for screening mammogram for breast cancer [Z12.31] Order(s):[facility] SCREENING [[id number]] Order #: [id number] FUTURE Prescriptions as of 2022 - atenolol (TENORMIN) 25 mg tablet Take 1 tablet by mouth once daily. - levothyroxine (SYNTHROID) 137 mcg tablet Take 1 tablet by mouth daily before breakfast. - hydrocortisone (ANUSOL-HC) 2.5 % rectal cream by RECTAL route twice daily. 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 DOTTY: No EDGAR-12/22/20 Labs-05/27/21 NOV-none med filled 07/01/21 Please review and advise. Mayela Suarez LPN documented in this encounter [facility] Evaluation note Note Date & Type Note Facility documented in this encounter [facility] Evaluation note Note Date & Type Note Facility documented in this encounter [facility] Reason for referral (narrative) Diagnostic Procedure Only (Routine) - Denied Note Date & Type Note Facility Referral ID Status Reason Start Date Expiration Date V isits Requested Visits Authorized [id number] Denied Auto-Generate d Referral 08/02/2022 09/01/2023 1 0 [facility] Summary Purpose Family History No Family History Records Found Advance Directives No Advanced Directives Records Found Additional Source Comments Source Comments (unrecognize d section and content) In the event this informatio n is protected by the Federal Confidentiality of Alcohol and Drug Abuse Patient Records regulations: The Federal rules restrict any use of the information to criminally investigate or prosecute any alcohol or drug abuse patient.[facility] the event this information is protected by the Federal Confidentiality of Alcohol and Drug Abuse Patient Records regulations: The Federal rules restrict any use of the information to criminally investigate or prosecute any alcohol or drug abuse patient.[facility] Reason for Visit (unrecogniz ed section and content) Care Teams (unrecognized sec tion and content) Pickle Water Pump Operator Relationship Specialty Start Date End Date Brian Singh MD [address] [place] [address] PCP - General Family Medicine 10/02/19 INFORMATION SOURCE (unrecogn ized section and content) FOR RECORDS PERTAINING TO PATIENTS WHO ARE OR HAVE BEEN ENROLLED IN A CHEMICAL DEPENDENCY/SUBSTANCEABUSE PROGRAM, SOME INFORMATION MAY BE OMITTED. This clinical summary was aggregated from multiple sources. Caution should be exercised in using it in the provision of clinical care. This summary normalizes information from multiple sources, and as a consequence, information in this document may materially change the coding, format and clinical context of patient data. In addition, data may be omitted in some cases. CLINICAL DECISIONS SHOULD BE BASED ON THE PRIMARY CLINICAL RECORDS. [employer] provides no warranty or guarantee of the accuracy or completeness of information in this document.
[2023-05-09 12:23] LABS: Hemoglobin 13.3 g/dL (12.0-15.0); Mean Corp Hgb Conc 31.7 g/dL (32-36); Mean Corpuscular Hgb 29.5 pg (27.0-32.0); Mean Corpuscular Volume 93.1 fL (81-99); Mean Platelet Vol. 10.2 fl (6.2-12.0); Platelet Count 266 K/mm3 (150-450); RBC Distribution Width CV 13.9 % (11.6-14.6); RBC Distribution Width SD 47.3 fl (35.1-43.9); Red Blood Count 4.51 M/mm3 (4.2-5.4); White Blood Count 4.7 K/mm3 (4.4-11.0)
[2023-05-09 13:14] LABS: Ferritin 18 ng/mL (8-252); Iron 42 ug/dL (50-170)
== END | disposition home or self-care (01) ==
PROVIDERS: PCP Family Medicine; Referring Provider Internal Medicine Gastroenterology; Visit Provider Internal Medicine Gastroenterology
DX: D50.9 Iron deficiency anemia, unspecified (principal)
CPT/HCPCS: 36415; 82728; 83540; 85027

== ENCOUNTER → 2023-07-18 | Outpatient (CLI) | payer OTHER, SELFPAY ==
--- NOTE | 2023-07-18 08:12 | BI_ITS ---
MAMMOGRAPHY - BILATERAL SCREENING REASON FOR EXAM: Female, 62 years old. Routine annual screening examination. PERTINENT HISTORY: Grandmother with breast cancer. TECHNIQUE: Digital bilateral breast yifan (3D mammographic acquisition) in the CC and MLO projections. 2-D mediolateral oblique (MLO) and craniocaudad (CC) views of both breasts were obtained. CAD: Full Field Digital Mammography with Computer Added Detection was performed. COMPARISON: Comparison is made with a prior study dated June 24, 2021 and September 27, 2011. FINDINGS: Breast Composition: There are scattered areas of fibroglandular density. There are no dominant masses or suspicious calcifications. Stable small benign-appearing bilateral axillary lymph nodes. Stable right secretory calcification. No other significant abnormalities are identified. There has been no significant change since the prior study. BI/SCRN MAMM (CAD)W/YIFAN BILAT IMPRESSION: Stable bilateral screening mammogram. Yearly follow-up mammogram recommended. (A) ASSESSMENT CATEGORY: BIRADS Category 2: Benign. A letter regarding these results will be sent to the patient by the facility within 30 days. Approximately 10% of breast cancers are not detected by mammography. A normal mammogram should not delay biopsy of a clinically suspicious abnormality. [id number] Electronically Signed: Jamie Christy MD at 12:04 EDT ,
--- OUTSIDE RECORDS SUMMARY | 2023-07-18 08:29 | XMS RPT_ITS | CCD ---
Author Name Unknown Address [address] [facility] [address] [place] [address] Organization [facility] Care Team Providers Care Key Ringer Name Role Phone Brian CASTELLANOS, Brian Verduzco Primary Care Provider Allergies Allergy Classification Reported Allergen(s) Allergy Type Date of Onset Reaction(s) Facility (3 sources) Sulfonamides (Antibiotic) Drug Allergy 04-18-2019 [facility] Medications Current Medications Medication Drug Class(es) Dates [...] Sig (Original) hydrocortisone 25 mg/ml topical cream (3 sources) Corticosteroid Start: 12-22-2020 hydrocortisone (ANUSOL-HC) 2.5 % rectal cream Indications: External hemorrhoid by RECTAL route twice daily. 28 g 1 12/22/2020 Active Problems Problem Classification Problem Date Documented Da te Episodic/Chronic Heart valve disorders (3 sources) Mitral valve prolapse; Translations: [Nonrheumatic mitral (valve) prolapse] Onset: 10-02-2019 10-02-2019 Chronic Other screening for suspected conditions (not mental disorders or infectious disease) (2 sources) Patient encounter status; Translations: [Encounter for screening mammogram for malignant neoplasm of breast] Episodic Regional enteritis and ulcerative colitis (3 sources) Crohn's disease; Translations: [Crohn's disease, unspecified, without complications] Onset: 11-12-2007 10-02-2019 Chronic Thyroid disorders (4 sources) Acquired hypothyroidism; Translations: [Hypothyroidism, unspecified] Onset: 10-02-2019 Chronic Encounters Encounter Date Encounter Type Care Provider Facility Start: 07-11-2023 ambulatory Brian Singh MD Work Phone: [facility] [place] Start: 08-02-2022 ambulatory Brian Singh MD Work Phone: [facility] [place] Start: 09-29-2021 Refill Brian Singh MD Work Phone: Family [facility] [place] Procedures Date Procedure Procedure Detail Performing Clinician Start: 06-24-2021 Mammography Brian Velez MD Work Phone: Start: 04-07-2021 Lipid 1996 panel - S alok or Plasma Brian Singh MD Work Phone: Start: 06-17-2015 Colonoscopy Brian Velez MD Work Phone: Plan of Treatment Date Care Activity Detail Author Start: 04-07-2026 Lipid panel Lipid Screening [facility] Start: 04-07-2026 LIPID SCREEN LIPID SCREEN [facility] Start: 11-25-2025 HPV TESTING HPV TESTING [facility] Start: 11-25-2025 PAP TESTING PAP TESTING [facility] Start: 11-25-2025 Screening for malignant neoplasm of cervix [facility] Start: 06-17-2025 Colonoscopy COLONOSCOPY [facility] Start: 06-17-2025 COLORECTAL CANCER SCREENING COLORECTAL CANCER SCREENING [facility] Start: 06-17-2025 Screening for malignant neoplasm of colon [facility] Start: 04-07-2024 DIABETES SCREEN DIABETES SCREEN [facility] Start: 04-07-2024 Diabetes Screening Diabetes Screening [facility] Start: 05-07-2023 Depression Assessment Depression Assessment [facility] Start: 01-05-2023 Covid-19 Vaccine () Covid-19 Vaccine () [facility] Start: 01-05-2023 Influenza vaccination Influenza Vaccine (#1) [facility] Start: 06-24-2022 Mammography MAMMOGRAM [facility] Start: 06-24-2022 Screening for malignant neoplasm of breast Mammogram Screening [facility] Start: 05-07-2022 DEPRESSION ASSESSMENT DEPRESSION ASSESSMENT [facility] Start: 01-05-2022 Influenza vaccination [facility] Start: 12-22-2021 ANNUAL PCP TEAM CHRONIC DISEASE VISIT ANNUAL PCP TEAM CHRONIC DISEASE VISIT [facility] Start: 2018 HEPATITIS B (1 of 3 - Risk 3-dose series) HEPATITIS B (1 of 3 - Risk 3-dose series) [facility] Start: 2018 Hepatitis B Vaccine (1 of 3 - Risk 3-dose series) Hepatitis B Vaccine (1 of 3 - Risk 3-dose series) [facility] Start: 2018 RSV Vaccine (1 - 1-dose 60+ series) RSV Vaccine (1 - 1-dose 60+ series) [facility] Start: 2008 SHINGRIX VACCINE (1 of 2) SHINGRIX VACCINE (1 of 2) [facility] Start: 08-08-2003 COLOGUARD (FIT-DNA) COLOGUARD (FIT-DNA) [facility] Start: 08-08-[address] COLONOGRAPHY [facility] Start: 08-08-2003 FECAL OCCULT BLOOD FECAL OCCULT BLOOD [facility] Start: 08-08-2003 Screening for malignant neoplasm of colon [facility] Start: 08-08-2003 SIGMOIDOSCOPY SIGMOIDOSCOPY [facility] Start: 1977 Hepatitis A Vaccine (1 of 2 - Risk 2-dose series) Hepatitis A Vaccine (1 of 2 - Risk 2-dose series) [facility] Start: 1977 HEPATITIS B (1 of 3 - Risk 3-dose series) HEPATITIS B (1 of 3 - Risk 3-dose series) [facility] Start: 1977 Urine microalbumin profile [facility] Start: 1976 HEPATITIS C SCREENING HEPATITIS C SCREENING [facility] Start: 1976 Hepatitis C screening Hepatitis C Screening [facility] Start: 1976 HIV SCREENING HIV SCREENING [facility] Start: 1976 HIV screening HIV Screening [facility] Start: 1976 MMR (1 of 2 - Risk 2-dose series) MMR (1 of 2 - Risk 2-dose series) [facility] Start: 1976 MMR Vaccine (1 of 2 - Risk 2-dose series) MMR Vaccine (1 of 2 - Risk 2-dose series) [facility] Start: 1970 Adult depression screening assessment DEPRESSION SCREENING [facility] Start: 1968 Meningococcal B Vaccine: Consider Based On Risk (1 of 4 - Increased Risk) Meningococcal B Vaccine: Consider Based On Risk (1 of 4 - Increased Risk) [facility] Start: 1968 MENINGOCOCCAL B: Consider based on risk (1 of 4 - Increased Risk Bexsero 2-dose series) MENINGOCOCCAL B: Consider based on risk (1 of 4 - Increased Risk Bexsero 2-dose series) [facility] Start: 1964 Pneumococcal vaccination Pneumococcal Vaccine (1 of 2 - PCV) [facility] Start: 08-08-1963 COVID-19 VACCINE (#1) COVID-19 VACCINE (#1) [facility] Start: 08-08-1959 HEPATITIS A (1 of 2 - Risk 2-dose series) HEPATITIS A (1 of 2 - Risk 2-dose series) [facility] Start: 02-06-1959 COVID-19 VACCINE (#1) COVID-19 VACCINE (#1) [facility] End: 09-01-2023 PERFECTO SCREENING PERFECTO SCREENING Radiology Routine Encounter for screening mammogram for breast cancer 1 Occurrences starting 08/02/2022 until 09/01/2023 [facility] Work Phone: Immunizations Immunization Date Immunization Notes Care Provider [facility] 03-27-2018 influenza virus vacc ine, unspecified formulation Brian Singh MD Work Phone: [facility] Payers Date Payer Category Payer Unknown MMO [employer] [id number] 2021-Present [phone] [address] [place] [address] Indemnity [id number] 2021 Unknown MMO [employer] [id number] 2021-Present [phone] [address] [place] [address] Indemnity [id number] Social History Date Type Detail Facility Start: 04-18-2019 Tobacco smoking stat us [facility] Never smoked tobacco [facility] Start: 04-18-2019 Tobacco use and exposure Smoke less tobacco non-user [facility] Start: 12-22-2020 Alcohol intake Ex-drinker (finding) [facility] Start: 1960 Sex Assigned At Not on file [facility] Start: 04-12-2020 End: 12-22-2020 History of Social function [facility] Start: 04-12-2020 End: 12-22-2020 Tobacco use panel [facility] National Score (1-10 0), lower number is lower risk Not on file [facility] Clinical Note 07-11-2023 Note Date & Type Note Facility 07-11-2023 Note Patient Outreach (IN TMMN) JAIR BROWN ([id number]) 1960 F Date Time Provider Department 07/11/23 BRIAN SINGH During your visit today, we recorded the following information about you: Allergies As of Date: 07/11/2023 Noted Allergy Reaction SULFA (SULFONAMIDE ANTIBIOTICS) 04/18/2019 4 - Hives Date Reviewed: 12/22/2020 Reviewed by: Radha Melendez Ma - Fully Assessed Visit Diagnosis:Encounter for screening mammogram for breast cancer [Z12.31] Order(s):[facility] SCREENING [[id number]] Order #: [id number] FUTURE Prescriptions as of 07/16/2023 - atenolol (TENORMIN) 25 mg tablet Take 1 tablet by mouth once daily. - levothyroxine (SYNTHROID) 137 mcg tablet Take 1 tablet by mouth daily before breakfast. - hydrocortisone (ANUSOL-HC) 2.5 % rectal cream by RECTAL route twice daily. 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] 11/12/2007 Hypothyroidism, acquired [E03.9] 10/02/2019 MVP (mitral valve prolapse) [I34.1] 10/02/2019 Encounter Status:Closed by GILMAR KENT on 07/16/23 [facility] Clinical Note 08-02-2022 Note Date & Type Note Facility 08-02-2022 Note Patient Outreach (IN TMMN) JAIR BROWN ([id number]) 1960 F Date Time Provider Department 08/02/22 BRIAN SINGH During your visit today, we recorded the following information about you: Allergies As of Date: 08/02/2022 Noted Allergy Reaction SULFA (SULFONAMIDE ANTIBIOTICS) 04/18/2019 4 - Hives Date Reviewed: 12/22/2020 Reviewed by: Radha Melendez Ma - Fully Assessed Visit Diagnosis:Encounter for screening mammogram for breast cancer [Z12.31] Order(s):[facility] SCREENING [[id number]] Order #: [id number] FUTURE Prescriptions as of 2022 - atenolol [...] Encounter Status:Closed by GILMAR KENT on 08/07/22 [facility] Note 09-30-2021 Telephone Encounter - Mayela Suarez [...] Mayela Suarez LPN documented in this encounter [facility] Evaluation note Note Date & Type Note Facility documented in this encounter [facility] Evaluation note Note Date & Type Note Facility documented in this encounter [facility] Evaluation note Note Date & Type Note Facility documented in this encounter [facility] Reason for referral (narrative) Diagnostic Procedure Only (Routine) - Denied Note Date & Type Note Facility Referral ID Status Reason Start Date Expiration Date V isits Requested Visits Authorized [id number] Denied Auto-Generate d Referral 08/02/2022 09/01/2023 1 0 [facility] Reason for referral (narrative) Diagnostic Procedure Only (Routine) - Closed Note Date & Type Note Facility Referral ID Status Reason Start Date Expiration Date V isits Requested Visits Authorized [id number] Closed Auto-Generate d Referral 07/11/2023 08/09/2024 1 0 [facility] Summary Purpose Family History No Family History [...] or prosecute any alcohol or drug abuse patient.[facility] the event this information is protected by the Federal Confidentiality of Alcohol and Drug Abuse Patient Records regulations: The Federal rules restrict any use of the information to criminally investigate or prosecute any alcohol or drug abuse patient.[facility] the event this information is protected by the Federal Confidentiality of Alcohol and Drug Abuse Patient Records regulations: The Federal rules restrict any use of the information to criminally investigate or prosecute any alcohol or drug abuse patient.[facility] Reason for Visit (unrecogniz ed section and content) Care Teams (unrecognized sec tion and content) Key Ringer Relationship Specialty Start Date End Date Brian Singh MD [address] [place], [place] [address] PCP - General Family Medicine 10/02/19 Key Ringer Relationship Specialty Start Date End Date Brian Singh MD [address] [place], [place] [id number] PCP - General Family Medicine 10/02/19 INFORMATION [...] BE BASED ON THE PRIMARY CLINICAL RECORDS. [facility], [facility]. provides no warranty or guarantee of the accuracy or completeness of information in this document.
== END | disposition home or self-care (01) ==
LOC: OPBI 08:11
PROVIDERS: PCP Family Medicine; Referring Provider Family Medicine; Visit Provider Family Medicine
DX: Z12.31 Encounter for screening mammogram for malignant neoplasm of breast (principal); Z80.3 Family history of malignant neoplasm of breast
CPT/HCPCS: 77063; 77067

== ENCOUNTER → 2024-08-19 | Outpatient (CLI) | payer MEDICARE, OTHER, SELFPAY ==
[2024-08-19 11:28] LABS: Erythrocyte Sedimentation Rate 8 mm/hr (0-30)
[2024-08-19 12:14] LABS: ALB/GLOB Ratio 1.3 RATIO (0.9-2.4); AST(SGOT) 46 U/L (<=31); Alanine Aminotransfer ALT/SGPT 35 U/L (<=34); Albumin, Serum 4.1 g/dL (3.4-4.8); Alkaline Phosphatase 62 U/L (35-104); Anion Gap 11 (5-15); BUN 11 mg/dL (4-19); BUN/Creat Ratio 14.7 RATIO (10-20); Calcium,Total 9.2 mg/dL (7.6-11.0); Carbon Dioxide 24.2 mmol/L (21.0-32.0); Chloride 106 mmol/L (98-108); Creatinine, Serum 0.77 mg/dL (0.70-1.20); EST Glomerular Filtration Rate 85 (>60); Ferritin 21 ng/mL (22-378); Globulin 3.1 g/dL (2.2-4.2); Glucose 103 mg/dL (70-99); Iron Binding Capacity,Total 373 ug/dL (250-450); Potassium 4.4 mmol/L (3.3-5.1); Protein, Total 7.2 g/dL (5.9-8.4); Sodium Level 141 mmol/L (133-145); Total Bilirubin 0.28 mg/dL (0.00-1.30)
[2024-08-19 12:36] LABS: CRP < 3.00 mg/L (0.0-3.0); Iron 24 ug/dL (50-170); Iron Binding Capacity,Unsat 349 ug/dL (228-428); Magnesium 2.2 mg/dL (1.5-2.2); PERCENT IRON SATURATION 6.4 % (13-59)
== END | disposition home or self-care (01) ==
PROVIDERS: PCP Family Medicine; Referring Provider Internal Medicine Gastroenterology; Visit Provider Internal Medicine Gastroenterology
DX: K50.90 Crohn's disease, unspecified, without complications (principal); D64.9 Anemia, unspecified
CPT/HCPCS: 36415; 80053; 82728; 83540; 83550; 83735; 85652; 86140

== ENCOUNTER → 2024-08-20 | Outpatient (CLI) | payer MEDICARE, OTHER, SELFPAY ==
[2024-08-20 10:00] LABS: Absolute Lymphocyte Count 0.81 X10^3/uL (0.83-4.51); Absolute Neutrophil Count 3.4 X10^3/uL (2.0-7.7); Basophil# 0.06 X10^3/uL; Basophil% 1.3 % (0-1); Eosinophil# 0.14 X10^3/uL; Hemoglobin 10.3 g/dL (12.0-15.0); Lymphocyte # 0.81 X10^3/ul (0.83-4.51); Lymphocyte % 17.3 % (19-41); Mean Corp Hgb Conc 31.2 g/dL (32-36); Mean Corpuscular Hgb 26.2 pg (27.0-32.0); Monocyte# 0.26 X10^3/uL; Monocyte% 5.6 % (0-10); NRBC Flagged by Analyzer 0 % (0-5); Neutrophil # 3.39 X10^3/uL (2.7-7.7); Neutrophil % 72.6 % (47-70); Platelet Count 266 K/mm3 (150-450); RBC Distribution Width CV 16.2 % (11.6-14.6); RBC Distribution Width SD 49.8 fl (35.1-43.9); Red Blood Count 3.93 M/mm3 (4.2-5.4); White Blood Count 4.7 K/mm3 (4.4-11.0)
== END | disposition home or self-care (01) ==
LOC: LAB 09:13
PROVIDERS: PCP Family Medicine; Referring Provider Nurse Practitioner Acute Care; Visit Provider Nurse Practitioner Acute Care
DX: E61.1 Iron deficiency (principal)
CPT/HCPCS: 36415; 85025

== ENCOUNTER → 2024-09-15 | Outpatient (CLI) | payer MEDICARE, OTHER, SELFPAY ==
[2024-09-15 11:19] LABS: Absolute Neutrophil Count 2.6 X10^3/uL (2.0-7.7); Basophil# 0.03 X10^3/uL; Basophil% 0.8 % (0-1); Eosinophil# 0.12 X10^3/uL; Hematocrit 39.9 % (37-47); Hemoglobin 12.2 g/dL (12.0-15.0); Lymphocyte % 25.2 % (19-41); Mean Corp Hgb Conc 30.6 g/dL (32-36); Mean Corpuscular Hgb 26.5 pg (27.0-32.0); Mean Corpuscular Volume 86.7 fL (81-99); Mean Platelet Vol. 10.5 fl (6.2-12.0); Monocyte# 0.25 X10^3/uL; Monocyte% 6.3 % (0-10); NRBC Flagged by Analyzer 0 % (0-5); Neutrophil # 2.56 X10^3/uL (2.7-7.7); Neutrophil % 64.4 % (47-70); Platelet Count 240 K/mm3 (150-450); RBC Distribution Width CV 17.6 % (11.6-14.6); RBC Distribution Width SD 55.1 fl (35.1-43.9)
[2024-09-15 11:56] LABS: Iron 46 ug/dL (50-170); Iron Binding Capacity,Total 330 ug/dL (250-450); Iron Binding Capacity,Unsat 284 ug/dL (228-428)
== END | disposition home or self-care (01) ==
LOC: LAB 10:29
PROVIDERS: PCP Family Medicine; Referring Provider Nurse Practitioner Acute Care; Visit Provider Nurse Practitioner Acute Care
DX: E61.1 Iron deficiency (principal); K50.00 Crohn's disease of small intestine without complications; D64.9 Anemia, unspecified
CPT/HCPCS: 36415; 83540; 83550; 85025

== ENCOUNTER → 2025-01-22 | Outpatient (CLI) | payer MEDICARE, OTHER, SELFPAY | END | disposition home or self-care (01) | LOC: LABSPEC 15:43 | PROVIDERS: PCP Family Medicine; Visit Provider Otolaryngology | DX: H92.12 Otorrhea, left ear (principal) | CPT/HCPCS: 87070; 87075; 87077; 87186; 87205 ==

== ENCOUNTER → 2025-03-18 | Outpatient (CLI) | payer MEDICARE, OTHER, SELFPAY ==
[2025-03-18 13:34] LABS: Hematocrit 39.0 % (37-47); Hemoglobin 12.6 g/dL (12.0-15.0); Immature Granulocytes Count 0.020 X10^3/uL (0.0-0.0); Mean Corp Hgb Conc 32.3 g/dL (32-36); Mean Corpuscular Volume 89.4 fL (81-99); Mean Platelet Vol. 9.8 fl (6.2-12.0); NRBC Flagged by Analyzer 0 % (0-5); Platelet Count 284 K/mm3 (150-450); RBC Distribution Width CV 12.8 % (11.6-14.6); RBC Distribution Width SD 41.9 fl (35.1-43.9); Red Blood Count 4.36 M/mm3 (4.2-5.4); White Blood Count 5.8 K/mm3 (4.4-11.0)
[2025-03-18 13:56] LABS: CRP < 3.00 mg/L (0.0-3.0)
[2025-03-24 09:09] LABS: Calprotectin, Stool 178 ug/g (0-120)
== END | disposition home or self-care (01) ==
LOC: LABSPEC 13:16
PROVIDERS: PCP Family Medicine; Referring Provider Student in an Organized Health Care Education/Training Program; Visit Provider Student in an Organized Health Care Education/Training Program
DX: K64.9 Unspecified hemorrhoids (principal); K50.00 Crohn's disease of small intestine without complications; E61.1 Iron deficiency
CPT/HCPCS: 36415; 83993; 85025; 85652; 86140